=== PATIENT | female | born 1970 | race Caucasian/White ===

== ENCOUNTER 2016-10-11 16:25 | Observation (INO) | payer OTHER ==
[~2016-10-11] VITALS: Ht 167.6 cm; Wt 80.7 kg
[~2016-10-11 16:25] MED LIST: ALPRAZOLAM1 MG PO; AMBIEN 10MG10 MG PO; AMLODIPINE BES2.5 MG; DESOGEN 0.15 MG1 TAB; PERCOCET 325 MG1 TA2 PO; VITAMIN C500 M3 PO; ZOFRAN4 M1 SL
--- NOTE | 2016-10-11 16:31 | NUR ---
PER PT PROBLEMS X 6 MONTHS KNEW IT WAS MY GB, HAS HAD PAIN X 2 DAYS, SAW DR. LARSEN AND HAD US ? CHOLECYSTITIS, SENT IN FOR EVAL
--- NOTE | 2016-10-11 16:59 | ED GI/GU/ABDOMINAL COMPLAINT ---
History of Present Illness General Chief Complaint: General Adult Stated Complaint: PT WAS SIB FOR HER GLALL BLADDER Source: patient, old records Exam Limitations: no limitations Allergies Coded Allergies: Penicillins (HIVES 10/11/16) latex (RASH, HIVES 10/11/16) Reconcile Medications Amlodipine Besylate 5 MG TABLET 1 TAB PO DAILY BP (Reported) Fluticasone Propionate (Flonase Allergy Relief) 50 MCG/ACTUATION SPRAY.SUSP 2 SPRAY NASB DAILY PRN ALLERGIES (Reported) Lisinopril 10 MG TABLET 1 TAB PO DAILY BP (Reported) Multivitamin (Multi-Day Vitamins) 1 EACH TABLET 1 TAB PO DAILY SUPPLEMENT ( Reported) Zolpidem Tartrate 10 MG TABLET 1 TAB PO QPM SLEEP (Reported) Triage Note: PER PT PROBLEMS X 6 MONTHS KNEW IT WAS MY GB, HAS HAD PAIN X 2 DAYS, SAW DR. LARSEN AND HAD US ? CHOLECYSTITIS, SENT IN FOR EVAL Triage Nurses Notes Reviewed? yes ? n Is pt currently ? No HPI: Patient is a 46-year-old female presents complaining of severe right upper quadrant pain. Patient awoke this morning with severe pain and associated nausea. Patient had an outpatient ultrasound which was consistent with acute cholecystitis and was referred to the emergency department for further evaluation. Patient has been having intermittent right upper quadrant pain for approximately 6 months. Patient reports that she drank alcohol over the weekend which she believes caused the exacerbation. Patient last ate a banana this morning, otherwise has not had anything to eat or drink today. Patient denies fevers, chills, vomiting, diarrhea, urinary symptoms (RAYA ERAZO,CHITRA) Vital Signs & Intake/Output Vital Signs & Intake/Output Vital Signs Date Time Temp Pulse Resp B/P B/P Pulse O2 O2 Flow FiO2 Mean Ox Delivery Rate 10/11 1728 108/62 10/11 1728 98 Room Air 10/11 1632 97.9 88 22 98 Past History Travel History Traveled to [place] past 21 day No Medical History Any Pertinent Medical History? see below for history Neurological: NONE EENT: NONE Cardiovascular: hypertension Respiratory: NONE Gastrointestinal: NONE Hepatic: NONE Renal: NONE Musculoskeletal: NONE Psychiatric: NONE Endocrine: NONE Blood Disorders: NONE Cancer(s): NONE DRAWER IN JACQUARD LOOM/Reproductive: NONE Surgical History Surgical History: hysterectomy, BACK SURGERY multiple laparoscopic gynecologic surgeries Psychosocial History What is your primary language Telugu Tobacco Use: Never used ETOH Use: occasional use Family History Hx Contributory? No (CHITRA CARPIO) Review of Systems Review of Systems Constitutional: Denies: chills, fever. EENTM: Reports: no symptoms. Respiratory: Denies: cough, short of breath. Cardiovascular: Denies: chest pain. GI: Reports: see HPI. Genitourinary: Reports: no symptoms. Musculoskeletal: Reports: no symptoms. Skin: Reports: no symptoms. Neurological/Psychological: Reports: no symptoms. Hematologic/Endocrine: Reports: no symptoms. Immunologic/Allergic: Reports: no symptoms. (CHITRA CARPIO) Physical Exam Physical Exam General Appearance: well developed/nourished, alert, awake Head: atraumatic, normal appearance Eyes: Bilateral: normal appearance, PERRL, EOMI. Ears, Nose, Throat, Mouth: hearing grossly normal, moist mucous membrane Neck: normal inspection, supple, full range of motion Respiratory: normal breath sounds, chest non-tender, no respiratory distress, lungs clear Cardiovascular: regular rate/rhythm Gastrointestinal: normal bowel sounds, soft, positive García sign Back: normal inspection, normal range of motion, no CVA tenderness Extremities: normal range of motion Neurologic/Psych: no motor/sensory deficits, awake, alert, oriented x 3, normal gait, normal mood/affect Skin: intact, normal color, warm/dry Core Measures ACS in differential dx? No Severe Sepsis Present: No Septic Shock Present: No (CHITRA CARPIO) Progress Differential Diagnosis: appendicitis, biliary colic, cholecystitis, diverticulitis, gastritis, hepatitis, ischemic bowel, PUD/GERD, perforated viscous Diagnostic Imaging: Discussed w/RAD: Ultrasound (from outpatient). Radiology Impression: PATIENT: PALOMO BREEN PRESENT AGE: 46 PATIENT ACCOUNT NO: [id number] : 72 LOCATION: [facility] ORDERING PHYSICIAN: ALBERTO WHALEN APRN SERVICE DATE: 10/11/16 EXAM TYPE: US - US-COMPLETE ABDOMEN EXAMINATION: US ABDOMEN COMPLETE CLINICAL INFORMATION: Right upper quadrant pain. COMPARISON: CT 04/06/2015. TECHNIQUE: Real-time imaging of the abdominal viscera. FINDINGS: PANCREAS: Limited visualization, unremarkable. ABDOMINAL AORTA: Visualized portions unremarkable. INFERIOR VENA CAVA: Visualized portions are normal. LIVER: There is mild diffuse increase in hepatic echogenicity which is nonspecific, however statistically most consistent with fatty infiltration. The liver otherwise demonstrates normal size, contour and echogenicity. No focal lesion or intrahepatic biliary duct dilatation. GALLBLADDER: There is a wall echo shadow sign with a positive ultrasonic García sign overlying the gallbladder. Given its appearance, gallbladder wall thickening is difficult to assess., The leading well does not appear significantly thickened measuring approximately 2 mm. There is no pericholecystic fluid. COMMON BILE DUCT: Normal in caliber measuring 0.5 cm in diameter. RIGHT KIDNEY: Unremarkable No hydronephrosis. No renal calculi or focal parenchymal lesions. The kidney measures 10.6 cm in maximum dimension. LEFT KIDNEY: Unremarkable No hydronephrosis. No renal calculi or focal parenchymal lesions. The kidney measures 12.2 cm in maximum dimension. SPLEEN: Normal. The spleen measures 9.5 cm in maximum dimension. FREE FLUID: None. IMPRESSION: Cholelithiasis with findings concerning for acute cholecystitis. Surgical consultation is recommended. DICTATED BY: LAURA WEBER MD DATE/TIME DICTATED:10/11/161503 SAP DIRECTOR:ARELI DATE/TIME TRANSCRIBED:1503 CONFIDENTIAL, DO NOT COPY WITHOUT APPROPRIATE AUTHORIZATION. < Electronically signed in Other Vendor System> SIGNED BY: LAURA WEBER MD 10/11/16 151 Initial ED EKG: none (CHITRA CARPIO) Plan of Care: Orders Procedure Date/time Status Nothing by Mouth 10/12 B Active HEPATIC FUNCTION PANEL 10/12 0600 Active CBC WITHOUT DIFFERENTIAL 10/12 0600 Active BASIC ELECTROLYTES PLUS BUN&CR 10/12 0600 Active Pathway - chart 10/11 1818 Active Patient Data 10/11 1818 Active Code Status 10/11 1818 Active PROTHROMBIN TIME 10/11 1653 Complete LIPASE 10/11 1653 Complete COMPREHENSIVE METABOLIC PANEL 10/11 1653 Complete CBC WITHOUT DIFFERENTIAL 10/11 1653 Complete TYPE & SCREEN (NOT X-MATCH) 10/[address] in observation 10/11 UNK Active VTE Mechanical Prophylaxis 10/11 UNK Active Vital Signs 10/11 UNK Active Intake & Output 10/11 UNK Active Activity/Ambulation 10/11 UNK Active Current Medications Sig/Belkys Start time Last Medication Dose Stop Time Status Admin Amlodipine Besylate 5 MG DAILY 10/12 1000 UNVr (Norvasc) Lisinopril 10 MG DAILY 10/12 1000 UNVr (Prinivil) Pantoprazole Sodium 40 MG DAILY 10/12 1000 UNVr (Protonix) Zolpidem Tartrate 10 MG AT BEDTIME 10/11 2199 UNVr (Ambien) Acetaminophen 650 MG Q6P PRN 10/11 1829 UNVr (Tylenol) Morphine Sulfate 2 MG Q3P PRN 10/11 1829 UNVr (Morphine) Dextrose/Sodium 1,000 ML .Q8H 10/11 1814 UNVr Chloride (D5-Normal Saline) Ondansetron HCl 4 MG Q6P PRN 10/11 1814 UNVr (Zofran) Ceftriaxone Sodium 1,000 MG ONCE ONE 10/11 1744 CAN (Rocephin) 10/11 1745 Metronidazole 500 MG ONCE ONE 10/11 1744 CAN (Flagyl) 10/12 1843 N/A 1 UNIT (No Carrier) Laboratory Tests 10/11/161714: Anion Gap 11, Estimated GFR > 60, BUN/Creatinine Ratio 17.1, Glucose 87, Calcium 9.4, Total Bilirubin 0.6, AST 21, ALT 37, Alkaline Phosphatase 86, Total Protein 6.6, Albumin 4.0, Globulin 2.6, Albumin/Globulin Ratio 1.5, Lipase 75, PT 11.8, INR 1.13, CBC w Diff NO MAN DIFF REQ, RBC 4.40, MCV 89.7, MCH 30.0, RDW 13.5, MPV 7.5, Gran % 73.9, Lymphocytes % 19.4 L, Monocytes % 5.7, Eosinophils % 0.7, Basophils % 0.3, Absolute Granulocytes 5.2, Absolute Lymphocytes 1.4, Absolute Monocytes 0.4, Absolute Eosinophils 0, Absolute Basophils 0, PUBS MCHC 33.5 1739: Discussed with Dr. Corado: Have surgical PA come to evaluate the patient. 1754: Seen by Surgical PA Prosper: admit, hold off on antibiotics. To OR tomorrow. (RAYA ERAZO,CHITRA) Departure Departure Time of Disposition: 1758 Disposition: STILL A PATIENT Condition: Stable Clinical Impression Primary Impression: Cholecystitis Referrals: LOUIS ALLEN,ALEX Brown (PCP/Family) Departure Forms: Customer Survey General Discharge Information Admission Note Documentation of Exam: Documentation of any treatments & extenuating circumstances including Concerns Regarding Discharge (functional status, medication knowledge or non-compliance, living conditions, etc.) that warrant an admission rather than observation: Observation Note Spoke With: MIKAEL ALLEN,RANDOLPH Denton Patient In: Non-ED OBS Care Area Rationale for Observation: My rational for observation is as follows: Serial abdominal exams, nothing by mouth, surgical intervention. If any time patient spikes a fever or develops an elevated white count than initiate antibiotics. (RAYA ERAZO,CHITRA) PA/BLOWER INSULATOR Co-Sign Statement Statement: ED Attending supervision documentation- [] I saw and evaluated the patient. I have also reviewed all the pertinent lab results and diagnostic results. I agree with the findings and the plan of care as documented in the PA's/BLOWER INSULATOR's documentation. [X] I have reviewed the ED Record and agree with the PA's/BLOWER INSULATOR's documentation. [] Additions or exceptions (if any) to the PAs/BLOWER INSULATOR's note and plan are summarized below: [] (WYATT ALLEN,YAHAIRA Tatum)
[2016-10-11] MEDS ORDERED: LISINOPRIL10 M1 PO (17:01)
[2016-10-11] MEDS ORDERED: AMLODIPINE BESYL5 M1 PO (17:01)
[2016-10-11] MEDS ORDERED: MULTI-DAY VITA1 EACH PO (17:02)
[2016-10-11] MEDS ORDERED: FLONASE ALLERG9.9 ML NASB (17:02)
[2016-10-11] MEDS ORDERED: ZOLPIDEM TARTRA10 M1 PO (17:02)
[2016-10-11 17:24] LABS: ABSOLUTE BASOPHIL COUNT 0 /CUMM (0.0-0.2); ABSOLUTE EOSINOPHIL COUNT 0 /CUMM (0.0-0.7); ABSOLUTE GRANULOCYTE CT 5.2 /CUMM (1.4-6.5); ABSOLUTE LYMPH COUNT 1.4 /CUMM (1.2-3.4); ABSOLUTE MONOCYTE COUNT 0.4 /CUMM (0.10-0.60); BASOPHIL % 0.3 % (0.0-2.0); EOSINOPHIL % 0.7 % (0-5); GRANULOCYTE % 73.9 % (42.2-75.2); HEMATOCRIT 39.5 % (37-47); MEAN CORPUSCULAR HGB CONC 33.5 G/DL (33.0-37.0); MEAN CORPUSCULAR VOLUME 89.7 FL (81.0-99.0); MEAN PLATELET VOLUME 7.5 FL (7.4-10.4); PLATELET COUNT 273 /CUMM (130-400); RBC DISTRIBUTION WIDTH 13.5 % (11.5-14.5)
--- NOTE | 2016-10-11 17:24 | NUR ---
LABS DRAWN AND SENT BY THIS [facility] BLUE, SST, LAV, PINK, JIMÉNEZ
--- NOTE | 2016-10-11 17:26 | NUR ---
PT REPORTS FEW MONTH HX RUQ PAIN; INTERMITTENT IN NATURE BUT BECOMMING MORE CONSTANT SINCE YESTERDAY. PT STATES IT WAS RECENTLY HER BDAY, "I THINK I OVERDID IT". PT STATES PAIN IS NONRADIATING AT THIS TIME. +NAUSEA, DENIES VOMITING. DENIES OTHER COMPLAINTS. PT STATES SHE ATE A BANANA THIS MORNING AND HAS BEEN DRINKING FLAVORED WATER THROUGHOUT THE DAY, LAST PO INTAKE (WATER) ON THE WAY TO ED. PT ADVISED TO REMAIN NPO FROM THIS POINT FORWARD. IV EST. MED WITH IV TYLENOL PER AUG. DENIES NEEDING ANYTHING ELSE AT THIS TIME.
[2016-10-11 17:32] LABS: PT 11.8 SEC (9.4-12.5)
--- NOTE | 2016-10-11 17:44 | NUR ---
KACEY Cespedes INTO UPDATE PT
--- NOTE | 2016-10-11 17:49 | NUR ---
PT STATES "I CANT REALLY TELL IF THE MEDICATION HELPED OR IF THE PAIN JUST GOT BETTER. I DONT NEED ANYTHING ELSE RIGHT NOW". NORMAL SALINE INFUSING PER MAR SURGICAL PA AGUSTIN INTO EVAL
--- NOTE | 2016-10-11 17:59 | NUR ---
PER SURGICAL PA, NO ANTIBIOTICS NEEDS. KACEY JACKSON INFORMED - MEDS TO BE CANCELED
--- NOTE | 2016-10-11 18:00 | Admission Core Measures ---
Admission Lab Results I reviewed the following labs: Laboratory Tests 10/11 1714 Chemistry Sodium Pending Potassium Pending Chloride Pending Carbon Dioxide Pending Anion Gap Pending BUN Pending Creatinine Pending BUN/Creatinine Ratio Pending Glucose Pending Calcium Pending Total Bilirubin Pending AST Pending ALT Pending Alkaline Phosphatase Pending Total Protein Pending Albumin Pending Globulin Pending Albumin/Globulin Ratio Pending Lipase Pending Coagulation PT (9.4 - 12.5 SEC) 11.8 INR (0.90 - 1.19) 1.13 Hematology CBC w Diff NO MAN DIFF REQ WBC (4.8 - 10.8 /CUMM) 7.0 RBC (4.20 - 5.40 /CUMM) 4.40 Hgb (12.0 - 16.0 G/DL) 13.2 Hct (37 - 47 %) 39.5 MCV (81.0 - 99.0 FL) 89.7 MCH (27.0 - 31.0 PG) 30.0 RDW (11.5 - 14.5 %) 13.5 Plt Count (130 - 400 /CUMM) 273 MPV (7.4 - 10.4 FL) 7.5 Gran % (42.2 - 75.2 %) 73.9 Lymphocytes % (20.5 - 51.1 %) 19.4 L Monocytes % (1.7 - 9.3 %) 5.7 Eosinophils % (0 - 5 %) 0.7 Basophils % (0.0 - 2.0 %) 0.3 Absolute Granulocytes (1.4 - 6.5 /CUMM) 5.2 Absolute Lymphocytes (1.2 - 3.4 /CUMM) 1.4 Absolute Monocytes (0.10 - 0.60 /CUMM) 0.4 Absolute Eosinophils (0.0 - 0.7 /CUMM) 0 Absolute Basophils (0.0 - 0.2 /CUMM) 0 PUBS MCHC (33.0 - 37.0 G/DL) 33.5 Admission Meds I reviewed the following Meds: Current Medications Sig/Belkys Start time Last Medication Dose Stop Time Status Admin Ceftriaxone Sodium 1,000 MG ONCE ONE 10/11 1744 CANr (Rocephin) 10/11 1745 Metronidazole 500 MG ONCE ONE 10/11 1744 CAN (Flagyl) 10/11 184 N/A 1 UNIT (No Carrier) Sodium Chloride 1,000 ML BOLUS ONE 10/11 1700 AC 10/11 (Normal Saline 0.9%) 10/11 1759 1750 Acute Coronary Syndrome Inclusion Criteria ACS Diagnosis No Inpatient Core Measures LDL Reminder: If No, please order W/I first 24hr of stay Congestive Heart Failure Inclusion Criteria CHF Diagnosis No Cerebrovascular accident Inclusion Criteria CVA/TIA Diagnosis No Inpatient Core Measures Bedside Swallow Eval Reminder: If BSE failed, place ST order Antithrombotic Reminder: Order Antithrombotic Medication by end of day 2 Antithrombotic Reminder: Document Reason Antithrombotic Not ordered by end of day 2 AFIB/Flutter Reminder: If Present, add to problem list AFIB/Flutter Reminder: Order Anticoag Medication for pts with AFIB/Flutter Atherosclerosis Reminder: If Present, add to problem list LDL Reminder: If No, please order W/I first 24hr of stay PT Order Reminder: If No, please order Venous thromboembolism Inpatient Core Measures VTE Risk Factors: Age > 40 No [facility] VTE prophylaxis d/t No contraindications No VTE Pharm Prophylaxis d/t VTE low risk Inclusion Criteria - Per Current guidelines, there needs to be overlap - treatment for the first 5 days of Warfarin therapy. - Parenteral Anticoagulation (IV or SC) needs to be - given along with Warfarin therapy. VTE Diagnosis No VTE Type NONE VTE Confirmed by (Test) NONE Problem List As ranked by this Provider includes Assessment & Plan 1. Cholecystitis HOME MEDS Home Med List Amlodipine Besylate 5 MG TABLET 1 TAB PO DAILY BP (Reported) Fluticasone Propionate (Flonase Allergy Relief) 50 MCG/ACTUATION SPRAY.SUSP 2 SPRAY NASB DAILY PRN ALLERGIES (Reported) Lisinopril 10 MG TABLET 1 TAB PO DAILY BP (Reported) Multivitamin (Multi-Day Vitamins) 1 EACH TABLET 1 TAB PO DAILY SUPPLEMENT ( Reported) Zolpidem Tartrate 10 MG TABLET 1 TAB PO QPM SLEEP (Reported)
--- NOTE | 2016-10-11 18:12 | History & Physical Pre-Op ---
AGUSTIN BRICENO 10/11/16 1759: General Information and HPI MD Statement: I have seen and personally examined PALOMO BREEN and documented this H&P. The patient is a 46 year old F who presented with a patient stated chief complaint of abdominal pain 2 days. Source of Information: patient Exam Limitations: no limitations History of Present Illness: 46-year-old female with approximate 6 month history of intermittent right upper quadrant pain which usually self resolves within the day of onset. The patient was seen today after being referred by her primary care physician for 2 day history of right upper quadrant pain getting progressively worse. The patient describes the pain as dull and constant with intermittent flares of sharp pain getting progressively worse. This morning she was awakened by the pain and reports associated anorexia, nausea but no vomiting. She had no other complaints current time and denies any fever/chills, dysuria, or chest pain. Allergies/Medications Allergies: Coded Allergies: Penicillins (HIVES 10/11/16) latex (RASH, HIVES 10/11/16) Home Med list Amlodipine Besylate 5 MG TABLET 1 TAB PO DAILY BP (Reported) Fluticasone Propionate (Flonase Allergy Relief) 50 MCG/ACTUATION SPRAY.SUSP 2 SPRAY NASB DAILY PRN ALLERGIES (Reported) Lisinopril 10 MG TABLET 1 TAB PO DAILY BP (Reported) Multivitamin (Multi-Day Vitamins) 1 EACH TABLET 1 TAB PO DAILY SUPPLEMENT ( Reported) Zolpidem Tartrate 10 MG TABLET 1 TAB PO QPM SLEEP (Reported) Past History Medical History Neurological: NONE EENT: NONE Cardiovascular: hypertension Respiratory: NONE Gastrointestinal: NONE Hepatic: NONE Renal: NONE Musculoskeletal: NONE Psychiatric: NONE Endocrine: NONE Blood Disorders: NONE Cancer(s): NONE CHILD CARE GROUP LEADER/Reproductive: NONE Surgical History Pertinent Surgical History: hysterectomy, BACK SURGERY, multiple CHILD CARE GROUP LEADER and procedures, tonsillectomy Past Family/Social History Psychosocial History Where Do You Live? Home Who Do You Live With? parent Services at Home None Primary Language: Croatian Smoking Status: Never Smoked ETOH Use: social Illicit Drug Use: denies illicit drug use Functional Ability ADLs Independent: dressing, eating, toileting, bathing. IADLs Independent: shopping, housework, finances, food prep, telephone, transportation , medication admin. Employment History Employment: Employed Profession/Employer: [employer]. Review of Systems Review of Systems Constitutional: Denies: chills, fever, malaise, weakness. Cardiovascular: Denies: chest pain, palpitations. Respiratory: Denies: cough, short of breath. GI: Denies: constipation, diarrhea. Genitourinary: Denies: dysuria. Exam & Diagnostic Data Last 24 Hrs of Vital Signs/I&O Vital Signs Date Time Temp Pulse Resp B/P B/P Pulse O2 O2 Flow FiO2 Mean Ox Delivery Rate 10/11 1728 108/62 10/11 1728 98 Room Air 10/11 1632 97.9 88 22 98 Laboratory Tests 10/11 1715 Chemistry Sodium Pending Potassium Pending Chloride Pending Carbon Dioxide Pending Anion Gap Pending BUN Pending Creatinine Pending BUN/Creatinine Ratio Pending Glucose Pending Calcium Pending Total Bilirubin Pending AST Pending ALT Pending Alkaline Phosphatase Pending Total Protein Pending Albumin Pending Globulin Pending Albumin/Globulin Ratio Pending Lipase Pending Coagulation PT (9.4 - 12.5 SEC) 11.8 INR (0.90 - 1.19) 1.13 Hematology CBC w Diff NO MAN DIFF REQ WBC (4.8 - 10.8 /CUMM) 7.0 RBC (4.20 - 5.40 /CUMM) 4.40 Hgb (12.0 - 16.0 G/DL) 13.2 Hct (37 - 47 %) 39.5 MCV (81.0 - 99.0 FL) 89.7 MCH (27.0 - 31.0 PG) 30.0 RDW (11.5 - 14.5 %) 13.5 Plt Count (130 - 400 /CUMM) 273 MPV (7.4 - 10.4 FL) 7.5 Gran % (42.2 - 75.2 %) 73.9 Lymphocytes % (20.5 - 51.1 %) 19.4 L Monocytes % (1.7 - 9.3 %) 5.7 Eosinophils % (0 - 5 %) 0.7 Basophils % (0.0 - 2.0 %) 0.3 Absolute Granulocytes (1.4 - 6.5 /CUMM) 5.2 Absolute Lymphocytes (1.2 - 3.4 /CUMM) 1.4 Absolute Monocytes (0.10 - 0.60 /CUMM) 0.4 Absolute Eosinophils (0.0 - 0.7 /CUMM) 0 Absolute Basophils (0.0 - 0.2 /CUMM) 0 PUBS MCHC (33.0 - 37.0 G/DL) 33.5 Right upper quadrant sound showing a distended gallbladder with gallstones and wall thickening but no pericholecystic fluid ringings are concerning for acute cholecystitis and common bile duct was within normal limits Physical Exam: Gen.: Alert and in no obvious distress Skin: Warm and dry without jaundice HEENT: Normocephalic and atraumatic, pupils are equal round reactive to light and accommodation, Scolari were nonicteric Chest: Nontender with equal expansion Cardiac: S1 and S2 regular Pulmonary: Bilateral breath sounds sounds are equal with good exchange there are no wheezes rales or rhonchi auscultated. Abdomen: Soft, nondistended, significant right upper quadrant and epigastric tenderness with rebound but no guarding. Positive García sign and a palpable gallbladder. Bowel sounds are positive and there were no appreciable hernias or masses palpated. Extremities: Bilateral lower extremities are warm without calf tenderness or significant edema. Gross motor and sensory were intact. Assessment/Plan Assessment/Plan: Assessment: 46-year-old female with a 2 day history of right upper quadrant epigastric pain and associated nausea/anorexia. Workup is positive for question of cholecystitis but definite biliary colic which is not improved with significant analgesia. The case was discussed with Dr. Jason Youssef. Plan: The patient will be placed in observation and will most likely require a laparoscopic cholecystectomy in the morning if does not significantly improve. The patient be kept nothing by mouth with IV hydration PRN pain medications, antipyretics, and antiemetics. GI and DVT prophylaxis Repeat laboratory studies in the morning Resume current home medications As Ranked By This Provider Problem List: 1. Cholecystitis RANDOLPH YOUSSEF MD 10/12/16 0958: Attending MD Review Statement Attending Statement Attending MD Statement: examined this patient, discuss w/resident/PA/COTTON MACHINE OPERATOR, reviewed images Attending Assessment/Plan: 46yo woman presents with a few year's duration of classic biliary colic symptoms that were managed with diet manipulation. She has now developed findings c/w acute cholecystitis. Recommend laparoscopic cholecystectomy. She understands the risks of surgery including but not limited to bleeding, infection, conversion to open and the presence of post-cholecystectomy diarrhea. She agrees to proceed.
--- NOTE | 2016-10-11 18:43 | NUR ---
FLUIDS INFUSING AT 125 ML/HR PER MAR PT DENIES NEEDING ANYTHING AT THIS TIME AWAITING BED ASSIGNMENT
--- NOTE | 2016-10-11 18:51 | NUR ---
PT GOING ROOM 215-2
--- NOTE | 2016-10-11 19:05 | NUR ---
REPORT GIVEN TO NURSE ON 2N TRANSPORT BOOKED
--- NOTE | 2016-10-11 19:12 | NUR ---
PT STATES SHE WOULD LIKE ADDITIONAL PAIN MEDICATION, "BUT WHEN I GET SETTLED UPSTAIRS" AWARE SHE IS WAITING ON TRANSPORT
[2016-10-11 19:23] VITALS: BP 120/86
--- NOTE | 2016-10-11 22:48 | NUR ---
1922 ALERT AND ORIENTED X 3. VITAL SIGNS STABLE. DENIES CHEST PAIN. + PULSES ON ROOM AIR. STEADY GAIT. SKIN C/D/I. BED LOW AND LOCKED. CALL LIGHT WITHIN REACH. WILL CONTINUE TO MONITOR
[2016-10-12 07:05] LABS: ABSOLUTE BASOPHIL COUNT 0 /CUMM (0.0-0.2); ABSOLUTE EOSINOPHIL COUNT 0.1 /CUMM (0.0-0.7); ABSOLUTE GRANULOCYTE CT 2.6 /CUMM (1.4-6.5); ABSOLUTE LYMPH COUNT 1.3 /CUMM (1.2-3.4); ABSOLUTE MONOCYTE COUNT 0.3 /CUMM (0.10-0.60); BASOPHIL % 0.6 % (0.0-2.0); EOSINOPHIL % 1.6 % (0-5); GRANULOCYTE % 60.5 % (42.2-75.2); MEAN CORPUSCULAR HGB 30.6 PG (27.0-31.0); MEAN CORPUSCULAR HGB CONC 33.9 G/DL (33.0-37.0); MEAN CORPUSCULAR VOLUME 90.2 FL (81.0-99.0); MEAN PLATELET VOLUME 7.8 FL (7.4-10.4); PLATELET COUNT 224 /CUMM (130-400); RBC DISTRIBUTION WIDTH 13.4 % (11.5-14.5); RED BLOOD CELL CT 3.88 /CUMM (4.20-5.40); WHITE BLOOD CELL COUNT 4.3 /CUMM (4.8-10.8)
[2016-10-12 07:45] VITALS: BP 106/74
[2016-10-12 11:49] VITALS: BP 106/60
--- NOTE | 2016-10-12 12:27 | NUR ---
NURSING NOTE: PT OFF FLOOR TO OR VIA BED. PT A&O, VSS CHARTED.
[2016-10-12] MEDS ORDERED: PERCOCET 5-3251 EACH PO (14:13)
--- NOTE | 2016-10-12 14:14 | Patient Discharge Instructions ---
Discharge Instructions General Discharge Information You were seen/treated for: SEE PREPRINTED INSTRUCTION SHEET Diet Continue normal diet: Yes Acute Coronary Syndrome Inclusion Criteria At DC or during hospital stay patient has or had the following: ACS DIAGNOSIS No Discharge Core Measures Meds if any: Prescribed or Continued at Discharge Meds if any: NOT Prescribed or Continued at Discharge Congestive Heart Failure Inclusion Criteria At DC or during hospital stay patient has or had the following: CHF DIAGNOSIS No Discharge Core Measures Meds if any: Prescribed or Continued at Discharge Meds if any: NOT Prescribed or Continued at Discharge Cerebrovascular accident Inclusion Criteria At DC or during hospital stay patient has or had the following: CVA/TIA Diagnosis No Discharge Core Measures Meds if any: Prescribed or Continued at Discharge Meds if any: NOT Prescribed or Continued at Discharge Venous thromboembolism Inclusion Criteria VTE Diagnosis No VTE Type NONE VTE Confirmed by (Test) NONE Discharge Core Measures - Per Current guidelines, there needs to be overlap - treatment for the first 5 days of Warfarin therapy. - If discharged on Warfarin prior to 5 days of - overlap therapy, the patient will need to be - assessed for post discharge needs including - *Post discharge parental anticoagulation - *Warfarin and/or parental anticoagulation education - *Follow up date to check INR post discharge At least 5 days overlap therapy as Inpatient No Meds if any: Prescribed or Continued at Discharge Note: Overlap Therapy is Warfarin and Anticoagulant Meds if any: NOT Prescribed or Continued at Discharge
--- NOTE | 2016-10-12 14:31 | Operative Report ---
Operative/Inv Procedure Report Surgery Date: 10/12/16 Name of Procedure: Laparoscopic cholecystectomy Pre-Operative Diagnosis: Acute cholecystitis Post-Operative Diagnosis: Same Estimated Blood Loss: scant Surgeon/Vice President Safety: MIKAEL ALLEN,RANDOLPH Gruber/Heather ERAZO Anesthesia: general endotracheal tube Drains: None Specimens: Gallbladder Operative Indication: See H&P Operative/Procedure Note Note: After informed consent patient is brought to the operating room and laid supine. General anesthesia was obtained and her abdomen was prepped and draped. The skin above the umbilicus infiltrated with local anesthesia and a curvilinear incision made sharply. We came down through the subcutaneous tissues bluntly and grasped the fascia with [place]'s. A fasciotomy was created sharply and stay sutures placed. The peritoneum was entered sharply and a blunt [place] port was placed. Pneumoperitoneum was achieved. 3, 5 mm ports were placed in the epigastrium and right upper quadrant after local anesthesia was instilled and under direct vision the camera. She's placed in reverse Trendelenburg and rotated towards the left. The gallbladder is identified. It was grasped at the dome and retracted towards the head. Infundibulum was then grasped. Adhesions to the undersurface were taken down with blunt and cautery dissection. We dissected both sides the triangle [place] peritoneal tissue with cautery. The artery was medial and its normal anatomic position. It was cauterized medially to allow it to be mobilized away from the duct. [place] was cleared of areolar tissue with cautery. The arteries and duct were doubly ligated with clips. Gallbladder is removed from the fossa electrocautery. It was placed in Endo Catch bag and cinched up. Right upper quadrant was and suction irrigated normal saline. Hemostasis achieved with cautery. The ports were then removed and the gallbladder delivered and passed off the field. The fascia was closed with 0 Vicryl suture. Skin incisions closed with 4-0 Vicryl. Steri-Strips and sterile dressing applied. Sponge and needle counts are correct. CC: LOUIS ALLEN,ALEX Brown
[2016-10-12 15:50] VITALS: BP 118/78
--- NOTE | 2016-10-12 15:50 | NUR ---
AT THIS TIME PT ARRIVED TO FROM PACU, PT A/OX3, VSS, DENIES CP, DENIES SOB, PT HAS 4 DSGS TO ABD ALL C/D/I, PT HAS NO C/O PAIN OR N/V AT THIS TIME, BED IN LOWEST AND LOCKED POSITION, WILL CONT TO MONITOR
--- NOTE | 2016-10-12 19:04 | PN- General Surgery ---
Subjective Subjective: postop check: Patient comfortable, complaints of mild nausea, mild abdominal pain. She is tolerating liquids. She had a small amount of trachea tolerated this well. She has no vomiting no fever no flulike illness. She expressed desire to be discharged home tonight Objective Vital Signs and I&Os Vital Signs Date Time Temp Pulse Resp B/P B/P Pulse O2 O2 Flow FiO2 Mean Ox Delivery Rate 10/12 1550 97.7 63 18 118/78 97 Room Air 10/12 1149 98.2 57 18 106/60 99 Room Air 10/12 0809 62 104/68 10/12 0809 62 104/68 10/12 0745 98.0 62 20 106/74 98 Room Air 10/11 1923 98.0 56 20 120/86 99 Room Air Intake & Output 10/12 1600 10/12 0800 10/12 0000 10/11 1600 10/11 0800 10/11 0000 Intake Total 1000 1000 1000 Output Total 1050 1050 350 Balance -50 -50 650 Intake, IV 1000 1000 1000 Intake, Oral 0 Output, Urine 1050 1050 350 Patient 178 lb Weight Physical Exam: Well-developed well-nourished no apparent distress. HEENT: Atraumatic, extraocular motion intact Neck: Supple, no lymphadenopathy Respiratory: No respiratory distress Abdomen: Mild tenderness in the right upper quadrant. Surgical incisions are clean dry and intact. Bowel sounds normal. Extremities: No edema, no calf pain Neuro: Alert and oriented x3 Psych: Mood affect normal, normal memory normal judgment. Skin: Warm and dry, no rash on exposed skin Assessment/Plan Assessment/Plan Postop day 0 status post laparoscopic cholecystectomy. -Patient is stable, expressed desire to be discharged home, if she continues tolerate by mouth fluids and does not have any further nausea or significant abdominal pain over the next hour or so she will be discharged home. This was discussed with the nursing staff and the patient. She understands that she should return with worsening abdominal pain nausea vomiting or fever. She'll take Percocet for pain at home. Core Measures/Miscellaneous Venous Thromboembolism VTE Risk Factors: Age > 40, Surgery VTE Contraindications: No Contraindications VTE Diagnosis: No VTE Type: NONE VTE Confirmed by (Test): NONE Beta Shabbir Is Beta Shabbir a Home Med? No Antibiotics Is Patient on Antibiotics? No
--- NOTE | 2016-10-12 19:25 | NUR ---
AT THIS TIME PT DISCHARGED HOME. PT A/OX3, ON RA, VSS, DENIES CP, DENIES SOB, DENIES ANY PAIN, DENIES N/V, PT 4 DSGS TO ABD C/D/I, PT IV D/C BY THIS RN, DC INSTRUCTIONS EXPLAINED TO PT AND PT VERBALIZED UNDERSTANDING
== END 2016-10-12 19:25 ==
LOC: ERH 16:25 → 2NB 18:18 → ERHI 18:18 → ENRESERV 18:50 → 2NB 19:23
PROVIDERS: Physician Assistant; Physician Assistant Surgical; ADMIT Surgery
DX: K81.0 Acute cholecystitis (principal); R63.0 Anorexia; I10 Essential (primary) hypertension
CPT/HCPCS: 36415; 81025; 82436; 88304; 93005; 93010; 96361; 96365; G0378; J0131; J2405; J7042